=== PATIENT | male | born 1965 | race Caucasian/White ===

== ENCOUNTER 2021-01-02 03:50 | Emergency (ER) | payer OTHER ==
[2021-01-02 04:21] LABS: BASOPHIL 0.9 % (0-2); EOSINOPHIL 2.3 % (0-5); HCT 48.6 % (42.0-52.0); HGB 16.3 g/dl (13.2-18.0); LYMPHOCYTE 22.9 % (15-48); MCH 28.6 pg (25.0-31.0); MCHC 33.5 g/dL (32.0-36.0); MCV 85.4 fL (78.0-100.0); MONOCYTE 8.3 % (0-12); MPV 9.7 fL (6.0-9.5); NEUTROPHIL 65.4 % (41-80); NRBC 0; PLT 226 K/uL (150-400); RBC 5.69 M/uL (4.70-6.00); RDW 13.5 % (11.5-14.0); WBC 10.2 K/uL (4.0-10.5)
[2021-01-02 04:39] LABS: ALBUMIN 4.3 g/dL (3.4-5.0); BILIRUBIN - TOTAL 0.5 mg/dL (0.2-1.0); BUN/CREAT RATIO (CALC) 13.7 RATIO; CREATININE 1.24 mg/dL (0.67-1.17); GLOBULIN (CALCULATION) 3.1 g/dL; TOTAL PROTEIN 7.4 g/dL (6.4-8.2)
[2021-01-02] MEDS ORDERED: OXY-IR 5MG5 MG PO (06:32)
[2021-01-02] MEDS ORDERED: ZOFRAN4 M1 PO (06:32)
[2021-01-02] MEDS ORDERED: FLOMAX 0.4 MG0.4 MG PO (06:32)
[2021-01-02 06:35] LABS: BILIRUBIN NEGATIVE (NEGATIVE); BLOOD 2+ Ery/uL (NEGATIVE); CLARITY CLEAR (CLEAR); COLOR YELLOW (YELLOW); GLUCOSE (U) NORMAL (NORMAL); LEUKOCYTES NEGATIVE Leu/uL (NEGATIVE); NITRITE NEGATIVE (NEGATIVE); PROTEIN NEGATIVE (NEGATIVE); SPECIFIC GRAVITY >=1.030 (1.001-1.030); UROBILINOGEN 0.2 mg/dL (0.2-1.0)
[2021-01-02 06:44] LABS: BACTERIA 1+; CALCIUM OXALATE CRYSTALS TRACE
[2021-01-02] MEDS ORDERED: PERCOCET 5-3251 EACH PO (09:52)
== END 2021-01-02 07:03 | disposition home or self-care (01) ==
LOC: FER 03:50
PROVIDERS: Emergency Medicine
DX: N20.0 Calculus of kidney (principal)
CPT/HCPCS: 36415; 80053; 81001; 83690; 85025; 87088; J1170; J1885; J2405; J7030

== ENCOUNTER 2021-06-04 17:21 | Day surgery (SDCO) | payer OTHER ==
[~2021-06-04] VITALS: Ht 167.6 cm; Wt 103.5 kg
[~2021-06-04 17:21] MED LIST: FLOMAX 0.4 MG0.4 MG PO; OXY-IR 5MG5 MG PO; PERCOCET 5-3251 EACH PO; ZOFRAN4 M1 PO
[2021-06-04 17:38] LABS: EOSINOPHIL 2.7 % (0-5); HCT 45.9 % (42.0-52.0); HGB 15.5 g/dl (13.2-18.0); LYMPHOCYTE 33.7 % (15-48); MCH 28.8 pg (25.0-31.0); MCHC 33.8 g/dL (32.0-36.0); MCV 85.3 fL (78.0-100.0); MONOCYTE 9.8 % (0-12); MPV 9.8 fL (6.0-9.5); NEUTROPHIL 52.5 % (41-80); NRBC 0; PLT 268 K/uL (150-400); RBC 5.38 M/uL (4.70-6.00); RDW 13.3 % (11.5-14.0)
[2021-06-04 17:43] LABS: INR 1.06 (0.9-1.2); PROTHROMBIN TIME 13.2 SECONDS (11.8-13.4); PTT 25.5 SECONDS (24.4-34.7)
[2021-06-04 17:45] LABS: D-DIMER 0.4 ug/mLFEU (0.00-0.41)
[2021-06-04 17:56] LABS: LACTIC ACID 2.5 mmol/L (0.4-1.9)
[2021-06-04 17:58] LABS: BUN 16 mg/dL (7-18); CREATININE 1.07 mg/dL (0.67-1.17); POTASSIUM 2.7 mmol/L (3.5-5.1)
[2021-06-04 18:04] LABS: ACETAMINOPHEN (TYLENOL) < 2.0 ug/mL (10.0-30.0); ALBUMIN 4.1 g/dL (3.4-5.0); ALKALINE PHOSHATASE 71 U/L (46-116); ALT 45 U/L (16-63); AST 27 U/L (15-37); BILIRUBIN - TOTAL 0.4 mg/dL (0.2-1.0); CHLORIDE 105 mmol/L (98-107); CO2 (BICARBONATE) 27 mmol/L (21-32); CPK 64 U/L (39-308); GLUCOSE 127 mg/dL (74-106); TOTAL PROTEIN 7.1 g/dL (6.4-8.2)
[2021-06-04 19:37] LABS: BILIRUBIN NEGATIVE (NEGATIVE); BLOOD NEGATIVE Ery/uL (NEGATIVE); CLARITY CLEAR (CLEAR); COLOR YELLOW (YELLOW); GLUCOSE (U) NORMAL (NORMAL); LEUKOCYTES NEGATIVE Leu/uL (NEGATIVE); NITRITE NEGATIVE (NEGATIVE); PROTEIN NEGATIVE (NEGATIVE); SPECIFIC GRAVITY >=1.030 (1.001-1.030); UROBILINOGEN 0.2 mg/dL (0.2-1.0); pH 5.5 (5.0-9.0)
[2021-06-04 19:39] LABS: CORONAVIRUS 2019 SARS-COV-2 NEGATIVE (NEGATIVE); INFLUENZA A NAA NEGATIVE (NEGATIVE)
[2021-06-04 19:43] LABS: AMPHETAMINES NEGATIVE (NEGATIVE); BARBITURATES NEGATIVE (NEGATIVE); ECSTASY (MDMA) NEGATIVE (NEGATIVE); MARIJUANA (THC) NEGATIVE (NEGATIVE); METHADONE NEGATIVE (NEGATIVE); OPIATES NEGATIVE (NEGATIVE); OXYCODONE NEGATIVE (NEGATIVE)
[2021-06-05 06:01] LABS: BASOPHIL 0.5 % (0-2); EOSINOPHIL 0.8 % (0-5); HCT 41.2 % (42.0-52.0); LYMPHOCYTE 17.8 % (15-48); MCH 29.2 pg (25.0-31.0); MCV 85.8 fL (78.0-100.0); MONOCYTE 7.9 % (0-12); MPV 9.7 fL (6.0-9.5); NEUTROPHIL 72.8 % (41-80); NRBC 0; PLT 197 K/uL (150-400); RDW 13.6 % (11.5-14.0); WBC 9.2 K/uL (4.0-10.5)
[2021-06-05 06:29] LABS: BUN/CREAT RATIO (CALC) 14.2 RATIO; CREATININE 1.06 mg/dL (0.67-1.17); MAGNESIUM 2.9 mg/dL (1.8-2.4)
[2021-06-05 06:37] LABS: POTASSIUM 4.2 mmol/L (3.5-5.1)
[2021-06-06 07:14] LABS: BASOPHIL 0.7 % (0-2); EOSINOPHIL 4.1 % (0-5); HCT 44.8 % (42.0-52.0); HGB 14.8 g/dl (13.2-18.0); LYMPHOCYTE 24.4 % (15-48); MCH 28.6 pg (25.0-31.0); MCV 86.7 fL (78.0-100.0); MONOCYTE 8.1 % (0-12); MPV 9.9 fL (6.0-9.5); NEUTROPHIL 62.4 % (41-80); NRBC 0; PLT 173 K/uL (150-400); RBC 5.17 M/uL (4.70-6.00); RDW 13.7 % (11.5-14.0); WBC 7.1 K/uL (4.0-10.5)
[2021-06-06 07:53] LABS: CREATININE 1.14 mg/dL (0.67-1.17); MAGNESIUM 2.4 mg/dL (1.8-2.4); POTASSIUM 4.1 mmol/L (3.5-5.1)
--- NOTE | 2021-06-06 09:17 | NUR ---
ADVISED DR. PERRY THAT PT IS OBS. DR. PERRY STATED THAT HE IS D/C PT HOME THIS DATE.
[2021-06-06] MEDS ORDERED: BACLOFEN 10MG T10 MG PO (10:43)
[2021-06-06] MEDS ORDERED: CHILDREN'S ASPI81 MG PO (10:43)
== END 2021-06-06 11:00 | disposition home or self-care (01) ==
LOC: FER 17:21 → EDBD 17:21 → FMS 21:42
PROVIDERS: Internal Medicine; Nurse Practitioner; ADMIT Internal Medicine
DX: G93.41 Metabolic encephalopathy (principal); E87.2 Acidosis; H93.13 Tinnitus, bilateral; E87.6 Hypokalemia; Z20.822 Contact with and (suspected) exposure to COVID-19; Z82.3 Family history of stroke; Z90.49 Acquired absence of other specified parts of digestive tract
CPT/HCPCS: 36415; 36600; 70450; 70551; 80048; 80053; 80061; 80305; 81003; 82140; 82550; 82803; 83605; 83735; 84145; 84443; 84484; 85025; 85379; 85610; 85730; 87040; 93005; 93970; 97161; G0378; G0480; J2405; J2550; J3475; J3480; J7030; J7050; J7120; Q9967; U0002